=== PATIENT | female | born 1990 | race Caucasian/White ===

== ENCOUNTER → 2024-04-18 | Day surgery (SDC) | payer OTHER ==
[~2024-04-18] MED LIST: DEXMEDETOMIDINE HCL 200 MCG/2 ML VIAL ONE; FENTANYL CITRATE/PF 100MCG/2 ML INJ ONE; FIBER0.52 GM; LIDOCAINE HCL 2% LOCAL INJ 5 ML SDV VIAL INJ ONE; PROPOFOL IV EMULSION 10 MG/ML 50 ML VIAL IV ONE; VITAMIN D
[2024-04-18] MEDS: LACTATED RINGER'S 1,000 ML ONE (10:42)
[2024-04-18 12:13] VITALS: TEMP 97.5
[2024-04-18 12:40] VITALS: BP 106/67; PULSE 71; RESP 18; O2SAT 99
== END | disposition home or self-care (01) ==
LOC: OR 09:53
PROVIDERS: ATTEND Internal Medicine Gastroenterology
DX: K29.70 Gastritis, unspecified, without bleeding (principal); K20.90 Esophagitis, unspecified without bleeding; K58.9 Irritable bowel syndrome, unspecified; K31.89 Other diseases of stomach and duodenum; K59.00 Constipation, unspecified; K62.5 Hemorrhage of anus and rectum; K64.8 Other hemorrhoids; Z71.3 Dietary counseling and surveillance; Z71.89 Other specified counseling; Z88.1 Allergy status to other antibiotic agents; Z88.0 Allergy status to penicillin; Z68.28 Body mass index [BMI] 28.0-28.9, adult
CPT/HCPCS: 43239; 45378; 81025; J2001; J2470; J2704; J3010; J7121